=== PATIENT | male | born 1950 | race Caucasian/White ===

== ENCOUNTER 2019-02-15 08:47 | Inpatient (IN) ==
[2019-02-15] MEDS ORDERED: ZOFRAN IV ONE (08:57)
[2019-02-15] MEDS ORDERED: NS 1,000 ML IV ONE (08:57)
[2019-02-15] MEDS ORDERED: MORPHINE IV ONE (08:57)
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
[2019-02-15] MEDS ORDERED: BOOSTRIX VACCINE IM ONE (09:08)
[2019-02-15 09:40] LABS: BASO# 0.06 X1000 (0.0-0.2); BASO% 0.7 % (0.0-0.8); EOS# 0.11 X1000 (0.0-0.7); EOS% 1.3 % (0.0-10.0); HEMATOCRIT 42.3 % (42.0-52.0); HEMOGLOBIN 14.3 g/dL (14.0-18.0); IMM GRAN# 0.05 X1000 (0.0-0.04); IMM GRAN% 0.6 % (0.0-0.5); LYMPH# 1.12 X1000 (1.2-3.4); MCH 30.8 PG (27-31); MCHC 33.8 g/dL (33-37); MONO# 0.69 X1000 (0.11-0.59); MPV 10.9 FL (7.4-10.4); NEUT% 76.4 % (42.2-75.2); PLT 219 X1000 (130-400); RBC 4.65 XMIL (4.7-6.1); RDW 12.6 % (11.5-14.5); WBC 8.63 X1000 (4.8-10.8)
[2019-02-15 09:47] LABS: AGAP 11; ALB/GLOB RATIO 1.6; ALBUMIN 4.4 g/dL (3.5-5.0); ALKALINE PHOSPHATASE 87 U/L (32-122); BUN 16 mg/dL (8-22); CALCIUM 8.8 mg/dL (8.8-10.2); CHLORIDE 101 mmol/L (98-107); COSMO 278; CREATININE 0.9 mg/dL (0.7-1.2); ESTIMATED GFR > 60; GLUCOSE 116 mg/dL (70-104); GOT 36 U/L (10-34); GPT 25 U/L (10-44); POTASSIUM 3.8 mmol/L (3.5-5.1); SODIUM 138 mmol/L (136-145); TCO2 26 mmol/L (25-35); TOTAL BILIRUBIN 0.58 mg/dL (0.20-1.00); TOTAL PROTEIN 7.2 g/dL (6.3-8.3)
[2019-02-15 09:48] LABS: CK PROFILE 317 U/L (24-204)
[2019-02-15] MEDS ORDERED: NORFLEX IV ONE (09:49)
[2019-02-15 10:12] LABS: CK INDEX 4.1 (0.0-2.5); CK-MB 13.11 ng/mL (0.0-5.0)
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
[2019-02-15 11:17] LABS: URINE SOURCE CLEAN CATCH
[2019-02-15 11:20] LABS: BILIRUBIN URINE NEGATIVE (NEGATIVE); BLOOD URINE NEGATIVE (NEGATIVE); COLOR YELLOW; GLUCOSE URINE NEGATIVE (NEGATIVE); KETONE URINE TRACE mg/dL (NEGATIVE); LEUKOCYTES URINE NEGATIVE (NEGATIVE); NITRITE URINE NEGATIVE (NEGATIVE); PH URINE 6.5; PROTEIN URINE TRACE mg/dL (NEGATIVE); SP GRAVITY URINE 1.023; TURBIDITY URINE CLEAR (CLEAR); UROBILINOGEN URINE NORMAL (NORMAL)
[2019-02-15 11:21] LABS: UR EPITHELIAL CELLS <10 /HPF (<10); URINE BACTERIA NEGATIVE /HPF; URINE RBC <10 /HPF (<10); URINE WBC <10 /HPF (<10)
[2019-02-15] MEDS ORDERED: DILAUDID IV ONE (11:30)
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
[2019-02-15 12:40] LABS: CK INDEX 3.6 (0.0-2.5); CK-MB 15.05 ng/mL (0.0-5.0)
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
--- NOTE | 2019-02-15 13:24 | Diag Imaging Result Doc PS360 ---
EXAM: HAND COMPLETE RIGHT INDICATION: pain TECHNIQUE: 3 views COMPARISON: None. FINDINGS: There is no discrete fracture, dislocation, or significant intrinsic osseous lesion. There are mild IP joint degenerative changes. The surrounding soft tissues are essentially unremarkable. IMPRESSION: No evidence of acute osseous abnormality. Electronically signed by Bebo Elizondo 02/15/2019 1:22 PM
--- NOTE | 2019-02-15 14:18 | PROVIDER PROGRESS NOTE ---
This chart was entered by Dot Urbina Scribe, acting as scribe for Elliot Coppola CRNP. Progress Note Dr. Mcdermott discussed the pt with Transfer Center and ED physician, Dr. Resendez. Dr. Resendez is accepting the pt. ER to ER transfer. This chart was documented by the indicated scribe, (Dot Urbina Scribe) and accurately reflects the services I performed and decisions made by me, Elliot Coppola CRNP, as attested by the provider's signature.
[2019-02-15 14:40] VITALS: BP 138/84
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
--- NOTE | 2019-02-16 09:04 | EKG Report ---
Test Performed on : 02/15/2019 11:15:24 AM Test Reason : CP Blood Pressure : / mmHG Vent. Rate : 052 BPM Atrial Rate : 052 BPM P-R Int : 144 ms QRS Dur : 082 ms QT Int : 452 ms P-R-T Axes : 055 -02 048 degrees QTc Int : 420 ms Sinus bradycardia. Otherwise normal ECG When compared with ECG of 15-FEB-2019 11:14, (Unconfirmed) No significant change was found Unconfirmed Result
--- NOTE | 2019-02-16 09:05 | EKG Report ---
Test Performed on : 02/15/2019 09:16:48 AM Test Reason : CP Blood Pressure : / mmHG Vent. Rate : 055 BPM Atrial Rate : 055 BPM P-R Int : 136 ms QRS Dur : 128 ms QT Int : 466 ms P-R-T Axes : 076 -13 031 degrees QTc Int : 445 ms Sinus bradycardia. Right bundle branch block Abnormal ECG When compared with ECG of 31-JUL-2012 08:27, Right bundle branch block is now present Unconfirmed Result
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
== END 2019-02-15 14:40 | disposition short-term general hospital (02) | DRG 184 ==
LOC: SUPCPDRO → ED 08:47 → ICU 13:22 → EDIPHOLD 14:05
PROVIDERS: ADMIT Emergency Medicine; ATTEND Emergency Medicine